=== PATIENT | male | born 1970 | race Two or more races ===

== ENCOUNTER 2019-02-28 07:00 | Day surgery (SDC) | payer OTHER ==
[~2019-02-28] VITALS: Ht 182.9 cm; Wt 90.7 kg
[~2019-02-28 07:00] MED LIST: TOPAMAX PO
[2019-02-28] MEDS ORDERED: TOPIRAMATE100 MG PO (09:31)
== END 2019-03-01 08:00 | disposition home or self-care (01) ==
LOC: SURH 07:00 → CIR.AMB 07:00 → EDSTATUS 14:45 → EDBD 14:45 → SURH 14:45 → O/R 18:07 → SURH 18:07 → CIR.AMB 03-01 08:00 → SURH 03-01 19:15
PROVIDERS: Specialist
PROC: 0HX5XZZ Transfer Chest Skin, External Approach (ICD-10-PCS; 2019-02-28)
PROC: 0H0V0ZZ Alteration of Bilateral Breast, Open Approach (ICD-10-PCS; 2019-02-28)
PROC: 0J080ZZ Alteration of Abdomen Subcutaneous Tissue and Fascia, Open Approach (ICD-10-PCS; principal; 2019-02-28 07:00)
DX: E65 Localized adiposity (principal); E66.01 Morbid (severe) obesity due to excess calories; N62 Hypertrophy of breast; Z98.84 Bariatric surgery status; M62.08 Separation of muscle (nontraumatic), other site